=== PATIENT | female | born 1960 | race Caucasian/White ===

== ENCOUNTER 2019-01-26 17:13 | Outpatient (REF) | payer BC, SELFPAY ==
[2019-01-26 18:30] LABS: ALT 46 U/L (12-78); AST 21 U/L (15-37); Albumin 3.9 g/dL (3.4-5.0); Alkaline Phosphatase 57 U/L (46-116); Anion Gap 6.6 mmol/L (3-11); BUN 15 mg/dL (7-18); Bilirubin, Total 0.6 mg/dL (0.2-1.0); CO2 30.4 mmol/L (21.0-32.0); CREATININE 0.78 mg/dL (0.55-1.02); Chloride 102 mmol/L (98-107); Glucose 85 mg/dL (70-100); Potassium 3.8 mmol/L (3.5-5.1); Sodium 139 mmol/L (136-145); Total Protein 6.8 g/dL (6.4-8.2)
[2019-01-26 18:32] LABS: Bilirubin Negative (Negative); Blood Trace-lysed (Negative); Clarity Clear; Glucose Negative (Negative); Ketones Trace mg/dL (Negative); Leukocyte Esterase Trace (Negative); Nitrite Negative (Negative); Urobilinogen 0.2 EU/dL (Up TO 0.2)
[2019-01-26 18:42] LABS: Bacteria Negative HPF (Negative); Casts Negative LPF (Negative); Crystals Negative HPF (Negative); Epithelial Cells Negative HPF (Negative); Mucus Negative (Negative); Other Cells Negative (Negative); RBC 0-2 (0-2); WBC 0-2 HPF (0-5)
[2019-01-26 18:43] LABS: Abs Immature Grans 0.01 k/cumm (0.0-0.09); Absolute Basophil Count 0.02 k/cumm (0.0-0.2); Absolute Lymphocyte Count 2.05 k/cumm (1.2-3.4); Absolute Monocyte Count 0.61 k/cumm (0.11-0.7); Absolute Neutrophil Count 3.13 k/cumm (1.2-6.7); Basophils % 0.3; C & S Indicated? Yes; Eosinophils % 3.3; HCT 40.2 % (36.0-46.0); HGB 13.4 g/dL (12.0-15.5); Immature Grans % 0.2; Lymphocytes % 34.1; Mean Corp. HGB Concentration 33.3 g/dL (32.0-36.0); Mean Corpuscular Hemoglobin 30.5 pg (27.0-33.0); Mean Corpuscular Volume 91.4 fL (80-95); Mean Platelet Volume 9.8 fL (8.0-11.0); Monocytes % 10.1; Platelet Count 230 x1000/uL (130-400); RBC Distribution Width 13.8 % (11.7-14.6); White Blood Cell Count 6.02 k/cumm (4.4-10.8)
[2019-01-26 18:49] LABS: COMMENT (LAB VIEW ONLY) 28.67 mg/dL; Microalb ug/mg Crea 4.5 ug/mg Cr
[2019-01-26 19:34] LABS: Cholesterol 221 mg/dL (50-200); HDL Cholesterol 105 mg/dL (40-60); LDL CHOLESTEROL 104 mg/dL (<100); Triglyceride 34 mg/dL (30-150)
== END 2019-01-26 17:33 ==
LOC: NCHCN 17:13
PROVIDERS: PCP Nurse Practitioner Family; Visit Provider Nurse Practitioner Family
DX: Z00.00 Encounter for general adult medical examination without abnormal findings (principal); I10 Essential (primary) hypertension
CPT/HCPCS: 80053; 80061; 83721; 81003; 81015; 82043; 82570; 85025; 87086

== ENCOUNTER 2019-02-13 07:00 | Outpatient (CLI) | payer BC, SELFPAY ==
--- NOTE | 2019-02-13 15:22 | DI.RAD_ITS ---
SYMPTOMS/DIAGNOSIS: CHRONIC DAILY HEADACHE, R51 CERVICAL SPINE: The disc spaces are well maintained. The alignment appears normal. There are no endplate osteophytes. There are facet degenerative changes seen, greatest at C5-6. The alignment is normal. There is no prevertebral soft tissue swelling. There is no neural foraminal narrowing. IMPRESSION: Facet degenerative changes at C5-6.
--- NOTE | 2019-02-13 15:42 | DI.MAMMO_ITS ---
SYMPTOMS/DIAGNOSIS: SCREENING, Z12.31, PREVENTATIVE CARE, Z00.00 BILATERAL SCREENING MAMMOGRAM: Mammograms were interpreted according to the usual protocol including computer analysis with CAD system, tomosynthesis and C view imaging. Comparison is made with exams from 2012 through 2018. The breasts are composed of heterogeneously dense fibroglandular tissue, breast density category C. There is a stable circumscribed nodule in the lateral right breast. No suspicious masses or suspicious microcalcifications are seen. There has been no significant change. IMPRESSION: Category 2, negative mammogram with benign findings. Yearly screening mammography is recommended. [facility] ASSESSMENT OF FINDINGS: Negative with benign findings. Category 2. Patient will receive a letter notifying them of these results. Bi-RADS category C. The breasts are heterogeneously dense, which may obscure small masses.
== END 2019-02-13 07:20 ==
PROVIDERS: PCP Nurse Practitioner Family; Visit Provider Nurse Practitioner Family
DX: Z00.00 Encounter for general adult medical examination without abnormal findings (principal); Z12.31 Encounter for screening mammogram for malignant neoplasm of breast; R51 Headache; M47.812 Spondylosis without myelopathy or radiculopathy, cervical region
CPT/HCPCS: 77063; 77067; 72050

== ENCOUNTER 2019-05-17 09:58 | Emergency (ER) | payer BC, SELFPAY ==
[2019-05-17 10:00] VITALS: BP 157/82; PULSE 70; RESP 14; TEMP 36.7; O2SAT 99
--- NOTE | 2019-05-17 10:25 | ED.GENADUL_ITS ---
Discharge Plan Disposition Patient Disposition: HOME Condition: Fair Discharge Details Chief Complaint: Orthopedic Clinical Impression: Effusion of knee Primary Care Provider: Jack Durán ED Provider: Raquel Bonilla Home Meds and New Rx's Prescriptions: No Action ibuprofen 100 MG/5 ML suspension 200 mg PO PRN RF: 0 multivitamin 1 EACH capsule 1 ea PO DAILY RF: 0 acyclovir 200 MG capsule 1 tab PO DAILY PRNRF: 0 losartan 25 mg Tablet 25 mg PO DAILY RF: 0 fluticasone propionate 50 mcg/actuation [place],Suspension 1 spray INTRANASAL PRN PRNRF: 0 acyclovir-hydrocortisone 5-1 % Cream 1 applic TOPICAL PRN PRNRF: 0 Discharge Instructions Instructions: Swollen Knee Joint (ED) Additional Instructions: Encourage rest, ice, elevation. Tylenol and/or ibuprofen as needed for discomfort. Please begin working on range of motion, gentle strengthening of the knee and extending the knee. He will need follow-up with primary care, please call tomorrow to schedule follow-up at the end of the week. If you develop fever/chills, redness of the joint, increased pain or other new/worsening symptoms please seek care urgently once again. Stand Alone Forms: Work Release Referrals: Jack Durán, [employer] [Primary Care Provider] - Discharge Data Discharge Date/Time-TO BE ENTERED AT DEPARTURE: 05/17/19 11:14 Medical Decision Making Patient is a 59-year-old feel presents today with chief complaint of left knee pain. She reports that she is had pain in this knee for several years but this is greatly exacerbated a few days ago when walking. She reports that she suddenly felt a pop in the knee. Did not fall into the knee. Denies any rotational injury. States the pain is primarily retropatellar. States she is been elevating and icing without any improvement in her discomfort. Is not taking anything for her pain. Patient has not had her knee evaluated historically, no known source for chronic knee pain. On exam, patient is a moderate effusion. She is ligamentously intact. Limited range of motion, I suspect likely from the effusion itself. Plan for x-ray to assess for any chronic changes that may be present. FINDINGS: No fracture, subluxation or suprapatellar joint effusion identified. No soft tissue swelling seen. IMPRESSION: No acute findings. Discussed these findings with the patient. We discussed treatment options. I do not have any suspicion for infection at this time. Feel that she would be a good candidate to have the knee drained and injection performed. We discussed the risks and benefits of this. At this time, she prefers to hold off and follow a more conservative approach with bracing and physical therapy. I encouraged rest, ice, elevation. Tylenol and/or ibuprofen as needed for discomfort. Advise close follow-up with primary care. All of her questions and concerns were addressed and she is in agreement with this plan. HPI General Mode of arrival: ambulatory . Date/Time Provider Initiated Documentation: 05/17/19 10:12 . Limitations to Documentation: no limitations . Information obtained by: patient, family and RN notes reviewed . History of Present Illness 59 year old F presents to the emergency department with the chief complaint of left knee pain, described as moderate, with intensity rated at 5. Quality is described as aching, and is localized to the left and lower extremity. Patient reports no radiation. Patient started experiencing this day(s) (2) and it has been constant. Immobilization improves symptom(s), Movement worsens symptoms . Patient notes no other symptoms.; denies fever/chills, rash and weakness. Patient did receive the following treatments prior to arrival, none Related Data Home Medications Medication Instructions Recorded Confirmed ibuprofen 200 mg PO PRN ml 08/15/15 05/17/19 multivitamin 1 ea PO DAILY 08/15/15 05/17/19 acyclovir 1 tab PO DAILY PRN 10/24/15 05/17/19 acyclovir-hydrocortisone 1 applic TOPICAL PRN PRN 05/17/19 05/17/19 fluticasone propionate 1 spray INTRANASAL PRN PRN 05/17/19 05/17/19 losartan 25 mg PO DAILY 05/17/19 05/17/19 Allergies Allergy/AdvReac Type Severity Reaction Status Date / Time No Known Allergies Allergy Unverified 05/17/19 10:04 General Stated Complaint: Orthopedic LISA: 4 Review of Systems Constitutional Reports as per HPI, Denies chills, Denies fever(s), Denies headache(s) and Denies weakness ENT Denies headache(s) Cardiovascular Reports as per HPI Respiratory Reports as per HPI and Denies cough Musculoskeletal Reports as per HPI and Denies tingling Integumentary/Breasts Reports as per HPI, Denies rash and Denies wounds Neurologic Reports as per HPI, Denies headache(s), Denies tingling, Denies paresthesias and Denies weakness PFSH Medical History Colon polyps DJD (degenerative joint disease) GERD (gastroesophageal reflux disease) Hypertension no longer on medications-diet and weight controlled Surgical History Colonoscopy - IV Sedation 2011 Family History (Updated 08/15/15 @ 14:25 by Migdalia Ackerman MD) Other Breast cancer Lung cancer Prostate cancer Social History Smoking/Tobacco Use Status: Former Tobacco Use Drug use: Never Do you feel safe at home: Yes Do you feel safe in your relationship?: Yes Exam Const General: cooperative, healthy appearing, comfortable, no acute distress, well developed and well groomed Nutritional Appearance: average body habitus and well nourished Orientation: alert and awake Resp Effort & Inspection: normal respiratory effort, able to speak in complete sentences and no respiratory distress Cardio Rate: regular rate Rhythm: regular rhythm Skin General skin exam: no rashes or lesions noted Lesions: no lesions Rashes: no rashes Trauma: no lacerations or abrasions Neuro General: alert and awake Cognition: normal cognition Speech: speech normal Gait: normal gait Motor: muscle tone normal throughout Sensory Exam: no sensory deficits noted Extrem Left lower extremity: normal capillary refill, hip/thigh Details: normal to inspection and normal ROM; no tenderness and no swelling, knee Details: tenderness (with palpation of patella), swelling (moderate effusion), knee ligament exam normal Details: anterior drawer test normal, posterior drawer test normal, valgus stress test normal and varus stress test normal; pain with axial loading, Adam's Test (unable to preform secondayr to swelling) and Apley's Test Details: negative; ROM abnormal (unable to flex past 90), no abrasions, no lacerations, no ecchymosis and no crepitus, lower leg Details: normal to inspection and no edema; no erythema, no tenderness, no localized swelling and no palpable cords and foot Details: normal capillary refill and vascular exam Details: dorsalis pedis pulse present; abnormal ROM, no cyanosis and no edema Psych Appearance: grossly normal and well kempt Mental Status: mental status grossly normal Speech and Movement: speech and movement normal Course Vital Signs Temperature 36.7 C 05/17/19 10:00 Pulse 70 05/17/19 10:00 Respiratory Rate 14 05/17/19 10:00 Blood Pressure 157/82 H 05/17/19 10:00 Pulse Oximetry 99 05/17/19 10:00 Temperature 36.7 C 05/17/19 10:00 Temperature Source Skin 05/17/19 10:00 Pulse 70 05/17/19 10:00 Respiratory Rate 14 05/17/19 10:00 Respiratory Effort Non-Labored 05/17/19 10:09 Blood Pressure 157/82 H 05/17/19 10:00 Blood Pressure Position Sitting 05/17/19 10:00 Pulse Oximetry 99 05/17/19 10:00 Oxygen Delivery Method Room Air 05/17/19 10:00 Oxygen Flow Rate 0 05/17/19 10:00 Pain Level 4 05/17/19 10:11
--- NOTE | 2019-05-17 10:41 | DI.RAD_ITS ---
SYMPTOM/DIAGNOSIS: PATELLA FEMORAL PAIN, MODERATE EFFUSION ON EXAM LEFT KNEE: Four views were performed. There is a joint effusion. No fracture is identified. There is mild narrowing of the medial femoral tibial joint space but no significant patellofemoral joint space narrowing. There is minimal periarticular spurring. IMPRESSION: Joint effusion and mild degenerative changes.
--- NOTE | 2019-05-17 10:55 | DI.VRAD_ITS ---
EXAM: XR Left Knee EXAM DATE/TIME: 05/17/2019 10:26 AM CLINICAL HISTORY: 59 years old, female; Knee; Left; Patient HX: [place] pop while walking, patella femoral pain, moderate effusion on exam TECHNIQUE: Imaging protocol: XR Left knee. Views: 4 or more views. COMPARISON: No relevant prior studies available. FINDINGS: No fracture, subluxation or suprapatellar joint effusion identified. No soft tissue swelling seen. IMPRESSION: No acute findings. Dictated and Authenticated by: Ramo John MD. Ordering:TOBIAS García MD
== END 2019-05-17 11:14 | disposition home or self-care (01) ==
LOC: ER 11:17
PROVIDERS: Emergency Provider Physician Assistant; PCP Nurse Practitioner Family
DX: M25.462 Effusion, left knee (principal)
CPT/HCPCS: 29505; 99283; 73564; 99282; L1830

== ENCOUNTER 2020-08-04 14:28 | Outpatient (REF) | payer BC, SELFPAY ==
[2020-08-04 18:14] LABS: HCT 40.2 % (36.0-46.0); HGB 13.4 g/dL (11.2-15.7); MCH 30.6 pg (27.0-33.0); MCHC 33.3 % (32.0-36.0); MCV 91.8 fL (80-95); MPV 9.9 fL (8.0-11.0); Platelet Count 247 10^3/uL (130-400); RBC 4.38 10^6/uL (3.93-5.22); RDW 12.9 % (11.7-14.6); RDW-SD 43.6 fL; WBC 7.07 10^3/uL (4.4-10.8)
[2020-08-04 18:43] LABS: COMMENT (LAB VIEW ONLY) 35.21 mg/dL; Microalb ug/mg Crea 5.1 ug/mg Cr
[2020-08-04 18:47] LABS: Anion Gap 9.4 mmol/L (3-11); BUN 18 mg/dL (7-18); CO2 27.6 mmol/L (21.0-32.0); CREATININE 0.86 mg/dL (0.55-1.02); Calculated LDL 104 mg/dL (<100); Chloride 102 mmol/L (98-107); Cholesterol 217 mg/dL (<200); Glucose 77 mg/dL (74-106); HDL Cholesterol 107 mg/dL (40-60); Potassium 3.8 mmol/L (3.5-5.1); Sodium 139 mmol/L (136-145); TSH (W/Ref FT4) 1.04 uIU/mL (0.36-3.74); Triglyceride 30 mg/dL (<150)
== END 2020-08-04 14:48 ==
LOC: NCHCN 14:28
PROVIDERS: PCP Nurse Practitioner Family; Visit Provider Nurse Practitioner Family
DX: I10 Essential (primary) hypertension (principal)
CPT/HCPCS: 80048; 80061; 85027; 82043; 82570; 84443

== ENCOUNTER 2020-08-30 01:33 | Outpatient (CLI) | payer BC, SELFPAY ==
--- NOTE | 2020-08-30 | DI.US_ITS ---
EXAM: US PELVIS TRANSVAGINAL CLINICAL HISTORY: DEEP DYSPAREUNIA,N94.12 TECHNIQUE: Ultrasound performed using standard protocol. COMPARISON: No exams were available for comparison FINDINGS: Pelvic ultrasound was performed transabdominally and transvaginally. Uterus measures about 6.9 x 3.0 x 4.6 cm. There are a couple of fundal fibroids, each measuring abou t 1 cm in diameter. The endometrial stripe is homogeneous and about 2 millimeters in thickness. No free fluid identified in the cul-de-sac. Right ovary measures 34 x 26 x 29 millimeters in contains a 2 cm in diameter simple cyst. Left ovary measures 30 x 15 x 16 millimeters and is unremarkable. Limited scanning of the kidneys shows no specific abnormality. IMPRESSION: Fundal uterine fibroids noted. Right ovarian simple cyst noted. DATA REPOSITORY:
== END 2020-08-30 01:53 ==
PROVIDERS: PCP Nurse Practitioner Family; Visit Provider Nurse Practitioner Family
DX: D25.9 Leiomyoma of uterus, unspecified (principal); N83.291 Other ovarian cyst, right side; N94.12 Deep dyspareunia
CPT/HCPCS: 76830; 76856

== ENCOUNTER 2021-05-24 01:15 | Outpatient (CLI) | payer OTHER, SELFPAY ==
--- NOTE | 2021-05-24 | DI.MRI_ITS ---
Exam(s) MR UPPER JOINT RT WO EXAM: MR UPPER JOINT RT WO CLINICAL HISTORY: RT SHOULDER PAIN, M25.511,NOT IMPROVED WITH PT. TECHNIQUE: Multiplanar multisequence MRI was performed. COMPARISON: No exams were available for comparison FINDINGS: BONES: There is no fracture or contusion pattern. JOINTS: Moderate degenerative changes are seen at the acromioclavicular joint. Mild degenerative liliana nges are seen in the greater tuberosity. The glenohumeral joint is normal. TENDONS: Supraspinatus: There is tendinosis of the supraspinatus tendon. There are few foci of hyperintense s ignal seen in the supraspinatus tendon anteriorly which may represent intrasubstance partial tear. Infraspinatus: There is tendinosis of the infraspinatus tendon. Subscapularis: Unremarkable. Teres Minor: Unremarkable. Biceps and [place]: There is tendinosis of the biceps tendon. MUSCLES: Unremarkable. GLENOID LABRUM: Unremarkable on this noncontrast examination. SOFT TISSUES: Unremarkable. LIGAMENTS: Unremarkable. OTHER: There is a tiny amount of fluid in the subacromial subdeltoid bursa. IMPRESSION: 1. Findings which may represent a small intrasubstance tear of the supraspinatus tendon. 2. Tendinosis of the supraspinatus, infraspinatus and biceps tendons. 3. Degenerative changes seen in the acromioclavicular joint and greater tuberosity. 4. Small amount of fluid in the subacromial subdeltoid bursa. DATA REPOSITORY:
== END 2021-05-24 01:35 ==
PROVIDERS: PCP Physician Assistant; Visit Provider Nurse Practitioner Family
DX: M25.511 Pain in right shoulder (principal); M19.011 Primary osteoarthritis, right shoulder
CPT/HCPCS: 73221

== ENCOUNTER 2021-07-04 00:57 | Outpatient (CLI) | payer BC, SELFPAY ==
--- NOTE | 2021-07-04 | DI.MAMMO_ITS ---
Exam(s) MAMMO SCREENING EXAM: MAMMO SCREENING CLINICAL HISTORY: SCREENING, Z12.39. TECHNIQUE: Bilateral full field digital CC and MLO mammographic images were obtained with 3D tomosyn thesis and utilizing computer aided detection (CAD). COMPARISON: Prior mammograms dating back to 2012, the most recent being January 2019. FINDINGS: The fibroglandular tissue pattern is again noted be moderately dense, this decreasing the sensitivity of the mammogram for finding in underlying lesions. There are no new significant radiographic findings in the left breast. In the right breast there is an asymmetric density located laterally unchanged from prior studies. M ore anteriorly there is a well-defined noncalcified 5 by 4 millimeter nodule located 3 cm in from the nipple, seen on the MLO view and unchanged from 2016 and therefore benign. There are no malignant-appearing microcalcification groups in this region or elsewhere in either [address]. There is no significant architectural distortion nor skin thickening-retraction. IMPRESSION: Moderately dense fibroglandular tissue. Stable benign-appearing findings. No radiographic evidence of malignancy. BI-RADS Category 2 - Benign Findings Breast Density - Category C - Heterogeneously dense Breast density Category C or D implies that the patient has dense breast tissue. Dense breast tissue can make it harder to find cancer on a mammogram. Dense breast tissue is also associated with an incr eased risk of breast cancer. This information about the result of the mammogram report was provided to the patient to raise their awareness. Use this report when you speak with the patient about their risks for breast cancer, which includes their family history. At that time, you may recommend additional screening tests (Ultrasoun d or MRI) as these tests may add significant information. A negative radiographic report should not delay biopsy if a dominant or clinically suspicious mass is present. Up to ten percent of cancers are not identified on mammography. A negative report may reinforce clinical impression. Adenosis and dense breasts may obscure an underlying neoplasm. False positive reports average 6 to 10%. Patient will receive a letter notifying them of these results.
== END 2021-07-04 01:17 ==
PROVIDERS: PCP Physician Assistant; Visit Provider Physician Assistant
DX: Z12.31 Encounter for screening mammogram for malignant neoplasm of breast (principal); R92.8 Other abnormal and inconclusive findings on diagnostic imaging of breast
CPT/HCPCS: 77063; 77067

== ENCOUNTER 2021-09-02 11:14 | Observation (INO) | payer BC, SELFPAY ==
[2021-09-02] VITALS (14 sets, daily range): BP systolic 136–166; BP diastolic 80–93; PULSE 63–87; RESP 14–25; TEMP 36.5–37.6; O2SAT 95–98
--- NOTE | 2021-09-02 11:30 | RT.EKG_ITS ---
APPROVED REPORT Exam: Resting ECG Reason for Exam: L face numb Patient Location: E HR:58 bpm ECG Measurements Heart Rate 58 AXIS MA 161 P 69 QRSd 80 QRS 0 QT 420 T 24 QTc 414 Conclusion Sinus bradycardia...rate< 60
--- NOTE | 2021-09-02 11:30 | DI.CT_ITS ---
Exam(s) CT HEAD - STROKE PROTOCOL EXAM: CT HEAD - STROKE PROTOCOL CLINICAL HISTORY: L face and arm numbness. TECHNIQUE: Imaging Protocol: Axial computed tomography images with coronal and sagittal reformatted images were created and reviewed COMPARISON: No exams were available for comparison FINDINGS: Ventricles and Extra axial spaces: Normal in size and morphology for the patient's age. Hemorrhage: None. Cerebral parenchyma: Normal. No acute territorial infarct is identified. Midline shift: None. Brainstem/Cerebellum: Normal. Calvarium: Normal. Visualized Paranasal sinuses/Mastoids: Clear. Soft Tissues: Unremarkable. IMPRESSION: No acute intracranial process. RADIATION DOSE DELIVERED: 677.81mGy.cm Total DLP DATA REPOSITORY: All CT scans at this facility are submitted to the National Radiology Data Registry (NRDR) Dose Index Registry (DIR) with the [employer] (A[employer]). RADIATION OPTIMIZATION: All CT scans at this facility use at least one of these dose optimization te chniques: automated exposure control; mA and/or kV adjustment per patient size (includes targeted exa ms where dose is matched to clinical indication); or iterative reconstruction.
--- NOTE | 2021-09-02 11:30 | DI.RAD_ITS ---
Exam(s) XR CHEST 1V IN DI DEPT EXAM: XR CHEST 1V IN DI DEPT CLINICAL HISTORY: L face numbness TECHNIQUE: 2D digital imaging was performed of the chest. One image was obtained. An AP view was ob tained. COMPARISON: No exams were available for comparison FINDINGS: MEDIASTINUM: Normal. HEART: Normal. PULMONARY VASCULATURE: Normal. LUNGS: Clear. PLEURAL SPACE: No pleural effusion or pneumothorax. BONE:Within normal limits for the patient's age. OTHER FINDINGS:Normal. IMPRESSION: No acute pulmonary findings. DATA REPOSITORY: RADIATION DOSE DELIVERED:
--- NOTE | 2021-09-02 11:45 | W.ED.GENAD ---
Discharge Plan Disposition Patient Disposition: [facility] INPATIENT Condition: Stable Discharge Details Chief Complaint: CVA/TIA Clinical Impression: Acute CVA (cerebrovascular accident) Primary Care Provider: Constantine Acevedo ED Provider: Mike Mahoney Home Meds and New Rx's Prescriptions: No Action ibuprofen 200 mg tablet 400 mg PO Q6H PRNRF: 0 multivitamin 1 EACH capsule 1 ea PO DAILY RF: 0 acyclovir 200 MG capsule 1 tab PO DAILY PRNRF: 0 losartan 25 mg Tablet 25 mg PO DAILY RF: 0 fluticasone propionate 50 mcg/actuation [place],Suspension 1 spray INTRANASAL PRN PRNRF: 0 acyclovir-hydrocortisone 5-1 % Cream 1 applic TOPICAL PRN PRNRF: 0 Medical Decision Making Pleasant and delightful otherwise healthy 61-year-old female presents with the abrupt onset of left face and left forearm numbness/decreased sensation at home approximate 10:30 AM this morning. She does have a history of hypertension for which she takes losartan. She has recently been well and is fully immunized against COVID-19. Patient arrives well-appearing 163/91, otherwise unremarkable vital signs. She demonstrates subjective decreased sensation in the left face and primarily left forearm. [id number] is unremarkable, Romberg is negative, lnfc-ff-[id number] unremarkable and there are no other noted focal neurologic deficits. Patient placed on a cardiac specialist, screening labs, EKG obtained, patient referred for CT scan of the head and chest x-ray. Laboratories are reassuring, with no potassium of 3.3. CT scan of the head without intracranial findings. Chest x-ray unremarkable. Patient does have persistent subjective numbness of the left face and forearm. I do feel she should be admitted for further stroke work-up and case was discussed with Dr. Chaudhry. HPI General Mode of arrival: ambulatory. Date/Time Provider Initiated Documentation: 09/02/21 11:25. Limitations to Documentation: no limitations. Information obtained by: patient and family. History of Present Illness 61 year old F presents to the emergency department with the chief complaint of L face and arm tingling approx 1030am, described as mild, Quality is described as constant, and is localized to the face, left and upper extremity. Patient reports no radiation. Patient started experiencing this minute(s) and it has been constant. No relieving factors improve symptom(s), No exacerbating factors reported . Patient notes denies headaches, shortness of breath, syncope and weakness. Patient did receive the following treatments prior to arrival, none Related Data Home Medications Medication Instructions Recorded Confirmed multivitamin 1 ea PO DAILY 08/15/15 09/02/21 acyclovir 1 tab PO DAILY PRN 10/24/15 09/02/21 acyclovir-hydrocortisone 1 applic TOPICAL PRN PRN 05/17/19 09/02/21 fluticasone propionate 1 spray INTRANASAL PRN PRN 05/17/19 09/02/21 losartan 25 mg PO DAILY 05/17/19 09/02/21 ibuprofen 200 mg tablet 400 mg PO Q6H PRN tab 07/03/21 09/02/21 Allergies Allergy/AdvReac Type Severity Reaction Status Date / Time cats Allergy Uncoded 09/02/21 11:26 General Stated Complaint: CVA/TIA LISA: 2 Review of Systems Narrative: immunized against Covid, no recent illness, no weakness, clumsiness, no CP or palp. 8 systems reveiewed PFSH All Active Problems (Updated 09/02/21 @ 13:15 by Mike Mahoney MD) Acute CVA (cerebrovascular accident) (Acute) Right rotator cuff tendonitis (Acute) Uterine fibroid (Acute) Uterine tenderness (Acute) Deep dyspareunia (Acute) Internal derangement of left knee (Acute) Medical History Colon polyps Deep dyspareunia DJD (degenerative joint disease) GERD (gastroesophageal reflux disease) Hypertension no longer on medications-diet and weight controlled Uterine fibroid Uterine tenderness Surgical History Colonoscopy - IV Sedation 2011 Family History Other Breast cancer Lung cancer Prostate cancer Social History Smoking/Tobacco Use Status: Former Tobacco Use Smoking risk assessment performed?: Yes Alcohol Intake: current Alcohol Intake frequency: a few times a week Drug use: Never Substance use type: does not use Do you feel safe at home: Yes Do you feel safe in your relationship?: Yes Exam Narrative Exam Narrative: GEN: awake, alert, oriented 3. Pleasant, well groomed, interactive. HEAD: Normocephalic, atraumatic ENT: Mucous membranes moist, oropharynx unremarkable, External ear exam unremarkable EYES: PERRL, EOMI NECK: Full ROM, no ZANDER, no menigismus CHEST/RESP: Nontender, clear to auscultation bilateral, no wheeze/rhonchi/rales CARDIOVASCULAR: RRR, no murmur, rub michelle. 2+ Rad pulse bilateral ABDOMEN: Soft, nontender, no mass. +Bowel sounds EXT: Full ROM, no edema, no rash Neuro: Decreased sensation left face, V1, V2, V3 distribution, decreased sensation left forearm radial aspect. Normal motor throughout. Cranial nerves II through XII otherwise intact. Grossly normal neurologic exam, conversant, interactive. Psych: Speech fluent, thoughts congruent, affect normal Course Vital Signs Vital signs: Vital Signs Temperature 36.6 C 09/02/21 11:22 Pulse 81 09/02/21 11:22 Respiratory Rate 16 09/02/21 11:22 Blood Pressure 163/91 H 09/02/21 11:22 Pulse Oximetry 98 09/02/21 11:22 Temperature 36.6 C 09/02/21 11:22 Temperature Source Skin 09/02/21 11:22 Pulse 81 09/02/21 11:22 Respiratory Rate 16 09/02/21 11:22 Respiratory Effort Non-Labored 09/02/21 11:41 Respiratory Depth Normal 09/02/21 11:41 Respiratory Pattern Normal 09/02/21 11:41 Blood Pressure 163/91 H 09/02/21 11:22 Blood Pressure Position Supine 09/02/21 11:22 Pulse Oximetry 98 09/02/21 11:22 Oxygen Delivery Method Room Air 09/02/21 11:22 Oxygen Flow Rate 0 09/02/21 11:22 Pain Level 0 09/02/21 11:22
[2021-09-02 11:56] LABS: Abs Immature Grans 0.02 10^3/uL (0.0-0.06); Absolute Basophil Count 0.04 10^3/uL (0.0-0.2); Absolute Eosinophil Count 0.21 10^3/uL (0.0-0.7); Absolute Lymphocyte Count 2.45 10^3/uL (1.2-3.4); Absolute Monocyte Count 0.67 10^3/uL (0.1-0.8); Absolute Neutrophil Count 3.58 10^3/uL (1.2-6.7); Basophils % 0.6; HCT 43.5 % (36.0-46.0); HGB 14.3 g/dL (11.2-15.7); Immature Grans % 0.3; Lymphocytes % 35.2; MCH 30.3 pg (27.0-33.0); MCHC 32.9 % (32.0-36.0); MCV 92.2 fL (80-95); MPV 9.2 fL (8.0-11.0); Monocytes % 9.6; Neutrophils % 51.3; Nucleated RBC 0 %; Platelet Count 288 10^3/uL (130-400); RBC 4.72 10^6/uL (3.93-5.22); RDW 13.2 % (11.7-14.6); RDW-SD 44.6 fL; WBC 6.97 10^3/uL (4.4-10.8)
--- NOTE | 2021-09-02 12:03 | DI.VRAD_ITS ---
Addendum created by Mike Devi MD on 09/02/2021 12:04:39 PM EST: THIS REPORT CONTAINS FINDINGS THAT MAY BE CRITICAL TO PATIENT CARE. The findings were verbally communicated by me to MIKE INGRAM via telephone conference at 12:04 PM EST on 09/02/2021. The findings were acknowledged and understood. Initial report created on 09/02/2021 12:03:08 PM EST: PROCEDURE INFORMATION: Exam: CT Head Without Contrast Exam date and time: 09/02/2021 11:45 AM Age: 61 years old Clinical indication: Other: Left face and arm numbness TECHNIQUE: Imaging protocol: Computed tomography of the head without contrast. Other technique: STROKE PROTOCOL was implemented. COMPARISON: CR XR cervical spine comp 4-5V 13/02/2019 15:10 FINDINGS: Brain: Normal. No intraxial or extraaxial hemorrhage. No infarct visible at this time. Unremarkable white matter. No mass effect. No significant involutional change. Cerebral ventricles: Normal. No ventriculomegaly or midline shift. Pituitary gland and sella: Normal. No enlargement. Paranasal sinuses: Visualized sinuses are unremarkable. No fluid levels or mucosal thickening. Mastoid air cells: Visualized mastoid air cells are well aerated. Orbital cavity: Unremarkable. Vasculature: No significant atherosclerotic calcification. Bones/joints: Unremarkable. No acute fracture. Soft tissues: Unremarkable. IMPRESSION: Normal head CT. ASSESSMENT: ASPECTS ([place] Stroke Program Early CT Score) is 10. Dictated and Authenticated by: Mike Devi MD. Ordering:ELVIRA Mckeon MD
--- NOTE | 2021-09-02 12:04 | DI.VRAD_ITS ---
PROCEDURE INFORMATION: Exam: XR Chest Exam date and time: 09/02/2021 11:45 AM Age: 61 years old Clinical indication: Other: Left face numbness TECHNIQUE: Imaging protocol: XR of the chest. Views: 1 view. COMPARISON: MR UPPER JOINT RT WO 10/01/2020 13:54 FINDINGS: Lungs: Lungs are clear with no infiltrate or nodule. Pleural spaces: Unremarkable. No pleural effusion. No pneumothorax. Heart/Mediastinum: Cardiomediastinal silhouette is normal. Bones/joints: Unremarkable. IMPRESSION: No active cardiopulmonary disease. Dictated and Authenticated by: Mike Devi MD. Ordering:ELVIRA Mckeon MD
[2021-09-02 12:14] LABS: ALT 43 U/L (14-59); AST 20 U/L (15-37); Alkaline Phosphatase 64 U/L (46-116); Anion Gap 6.2 mmol/L (3-11); BUN 16 mg/dL (7-18); Bilirubin, Total 0.4 mg/dL (0.2-1.0); CO2 30.8 mmol/L (21.0-32.0); CREATININE 0.9 mg/dL (0.55-1.02); Calcium 9.4 mg/dL (8.5-10.1); Chloride 102 mmol/L (98-107); Glucose 102 mg/dL (74-106); Magnesium 2.2 mg/dL (1.8-2.4); Potassium 3.3 mmol/L (3.5-5.1); Sodium 139 mmol/L (136-145); Total Protein 7.6 g/dL (6.4-8.2); Troponin I < 0.05 ng/mL (<0.06)
[2021-09-02] MEDS: Aspirin 325 MG TAB PO (12:17)
[2021-09-02] MEDS: Lactated Ringers 1,000 ML 125 ML IV ×3 (13:00→22:17)
[2021-09-02 13:26] LABS: Source Nasal/Nares
--- NOTE | 2021-09-02 14:06 | W.PM.HP.N ---
Date of service: 09/02/21 Time of Service: 14:20 Assessment and Plan Assessment and plan (1) TIA (transient ischemic attack): Start date: 09/02/21 Start time: 15:17 Status: Acute Assessment and plan: Slight facial droop on left side. Left side with weakness and left side numbness has disappeared. All motor function intact Lipid panel, A1c for am Atorvastatin, asa added IVF, hold HTN medication and allow for permissive HTN at this time Telemetry, MRI, U/S, Echo, Neuro consult for Saturday (2) GERD (gastroesophageal reflux disease): Start date: 09/02/21 Start time: 15:34 Status: Acute Assessment and plan: omeprazole Qualifiers: Esophagitis presence: esophagitis presence not specified Qualified Code(s): K21.9 - Gastro-esophageal reflux disease without esophagitis (3) Hypertension: Start date: 09/02/21 Start time: 15:34 Status: Acute Assessment and plan: Hold at this time for permissive discussed with Dr. Chaudhry Qualifiers: Hypertension type: unspecified Qualified Code(s): I10 - Essential (primary) hypertension History of Present Illness History of Present Illness Chief Complaint: Facial numbness, left arm numbness Narrative: 61 y.o female with PMH of GERD, HTN presented to [facility] for abrupt onset of left face and left forearm numbness/decreased sensation at home approximate 10:30 AM this morning. Labs in the ED reveal only potassium of 3.3. CT of head negative. Will admit for obs on telemetry. Replete mag with po. Labs for am to include lipid panel, A1c, started on ASA, atorvastatin, Echo, u/s cartoids, MRI and Neuro consult ordered for Saturday. Patient states all sx have resolved except small spot on left side of her face. Review of Systems All systems reviewed & are unremarkable except as noted in HPI and below PFSH All Active Problems (Updated 09/02/21 @ 15:17 by Jerri Noyola NP) Hypertension (Acute) GERD (gastroesophageal reflux disease) (Acute) TIA (transient ischemic attack) (Acute) Acute CVA (cerebrovascular accident) (Acute) Right rotator cuff tendonitis (Acute) Uterine fibroid (Acute) Uterine tenderness (Acute) Deep dyspareunia (Acute) Internal derangement of left knee (Acute) Medical History Colon polyps DJD (degenerative joint disease) GERD (gastroesophageal reflux disease) Hypertension no longer on medications-diet and weight controlled Surgical History Colonoscopy - IV Sedation 2011 Family History Other Breast cancer Lung cancer Prostate cancer Social History Smoking/Tobacco Use Status: Former Tobacco Use Smoking risk assessment performed?: Yes Alcohol Intake: current Alcohol Intake frequency: a few times a week Drug use: Never Substance use type: does not use Do you feel safe at home: Yes Do you feel safe in your relationship?: Yes Meds Allergies and Home Medications Allergies Allergy/AdvReac Type Severity Reaction Status Date / Time cats Allergy Uncoded 09/02/21 11:26 Home Medications Medication Instructions Recorded Confirmed Type multivitamin 1 ea PO DAILY 08/15/15 09/02/21 History acyclovir 1 tab PO DAILY PRN 10/24/15 09/02/21 History acyclovir-hydrocortisone 1 applic TOPICAL PRN PRN 05/17/19 09/02/21 History fluticasone propionate 1 spray INTRANASAL PRN PRN 05/17/19 09/02/21 History losartan 25 mg PO DAILY 05/17/19 09/02/21 History ibuprofen 200 mg tablet 400 mg PO Q6H PRN tab 07/03/21 09/02/21 History Exam Const General: cooperative, comfortable and no acute distress Orientation: alert, awake and oriented x3 Eyes Eyelids: eyelids normal Pupils: PERRL EOM: EOM intact bilaterally Neck Neck: normal visual inspection and no JVD Lymphatic: no lymphadenopathy noted Resp Effort & Inspection: normal respiratory effort Auscultation: clear to auscultation bilaterally Cardio Jugular venous pressure: no JVD Rhythm: regular rhythm Heart Sounds: S1 normal GI Auscultation: normal bowel sounds General: No CVA tenderness and deferred Skin General skin exam: no rashes or lesions noted Neuro General: patient alert, patient awake, patient oriented x3 and no focal motor deficits Cranial Nerves: CN's II-XI intact bilaterally Cognition: normal cognition Speech: speech normal Gait: normal gait Motor: muscle tone normal throughout, strength 5/5 throughout, no pronator drift and no movement abnormalities noted Sensory Exam: no sensory deficits noted Coordination: [id number]-my-[id number] test normal, [id number]-ly-dzkk test normal and Romberg test normal Extrem General: normal to inspection, full ROM and no clubbing, cyanosis or edema Results Labs Result diagrams: 09/02/21 11:25 09/02/21 11:25 Labs: Laboratory Results - last 24 hr 09/02/21 09/02/21 09/02/21 11:25 11:25 13:22 WBC 6.97 RBC 4.72 Hgb 14.3 Hct 43.5 MCV 92.2 MCH 30.3 MCHC 32.9 RDW 13.2 Plt Count 288 MPV 9.2 Immature Gran % 0.3 Neutrophils % 51.3 Lymphocytes % 35.2 Monocytes % 9.6 Eosinophils % 3.0 Basophils % 0.6 Nucleated RBC % 0 Absolute Neutrophils 3.58 Absolute Lymphocytes 2.45 Absolute Monocytes 0.67 Absolute Eosinophils 0.21 Absolute Basophils 0.04 Sodium 139 Potassium 3.3 L Chloride 102 Carbon Dioxide 30.8 Anion Gap 6.2 BUN 16 Creatinine 0.9 Estimated GFR/1.73 m2 >= 60.00 Glucose 102 Calcium 9.4 Magnesium 2.2 Total Bilirubin 0.4 AST 20 ALT 43 Alkaline Phosphatase 64 Troponin I < 0.05 Total Protein 7.6 Albumin 4.0 COVID-19 Source Nasal/Nares 09/02/21 14:38 WBC RBC Hgb Hct MCV MCH MCHC RDW Plt Count MPV Immature Gran % Neutrophils % Lymphocytes % Monocytes % Eosinophils % Basophils % Nucleated RBC % Absolute Neutrophils Absolute Lymphocytes Absolute Monocytes Absolute Eosinophils Absolute Basophils Sodium Potassium Chloride Carbon Dioxide Anion Gap BUN Creatinine Estimated GFR/1.73 m2 Glucose Calcium Magnesium Total Bilirubin AST ALT Alkaline Phosphatase Troponin I Cancelled Total Protein Albumin COVID-19 Source Last Vital Signs Temp 36.5 C 09/02/21 12: Pulse 69 09/02/21 13:30 Resp 14 09/02/21 13:30 BP 166/93 H 09/02/21 13:30 Pulse Ox 95 09/02/21 13:30
[2021-09-02] MEDS: Potassium Chloride 20 MEQ TABCR 40 MEQ PO (15:12)
[2021-09-02 15:58] LABS: COVID-19 PCR Negative (Negative)
[2021-09-02] MEDS: Enoxaparin 40 MG/0.4 ML SYR SC (17:31)
[2021-09-02] MEDS: Atorvastatin 40 MG TAB 80 MG PO (19:35)
[2021-09-03] VITALS (12 sets, daily range): BP systolic 119–165; BP diastolic 77–97; PULSE 57–78; RESP 16–20; TEMP 36.8–37; O2SAT 94–97
[2021-09-03] MEDS: Acetaminophen 325 MG TAB PO ×2 (01:08→08:30)
[2021-09-03] MEDS: Lactated Ringers 1,000 ML 125 ML IV (05:11)
[2021-09-03 05:47] LABS: Abs Immature Grans 0.01 10^3/uL (0.0-0.06); Absolute Basophil Count 0.03 10^3/uL (0.0-0.2); Absolute Eosinophil Count 0.22 10^3/uL (0.0-0.7); Absolute Lymphocyte Count 2.03 10^3/uL (1.2-3.4); Absolute Monocyte Count 0.68 10^3/uL (0.1-0.8); Absolute Neutrophil Count 4.59 10^3/uL (1.2-6.7); Basophils % 0.4; Eosinophils % 2.9; HCT 38.9 % (36.0-46.0); HGB 12.8 g/dL (11.2-15.7); Immature Grans % 0.1; Lymphocytes % 26.9; MCH 30.1 pg (27.0-33.0); MCHC 32.9 % (32.0-36.0); MCV 91.5 fL (80-95); MPV 9.1 fL (8.0-11.0); Neutrophils % 60.7; Nucleated RBC 0 %; Platelet Count 253 10^3/uL (130-400); RBC 4.25 10^6/uL (3.93-5.22); RDW 13.5 % (11.7-14.6); RDW-SD 45.8 fL; WBC 7.56 10^3/uL (4.4-10.8)
[2021-09-03 06:03] LABS: Anion Gap 5.6 mmol/L (3-11); BUN 14 mg/dL (7-18); CO2 30.4 mmol/L (21.0-32.0); CREATININE 0.9 mg/dL (0.55-1.02); Calcium 8.6 mg/dL (8.5-10.1); Calculated LDL 114 mg/dL (<100); Chloride 105 mmol/L (98-107); Cholesterol 214 mg/dL (<200); Glucose 95 mg/dL (74-106); HDL Cholesterol 82 mg/dL (40-60); Potassium 4.1 mmol/L (3.5-5.1); Sodium 141 mmol/L (136-145); Triglyceride 90 mg/dL (<150)
[2021-09-03 06:37] LABS: Hemoglobin A1C 5.9 % (<5.7)
--- NOTE | 2021-09-03 07:49 | PT.INIE ---
Date of service: 09/03/21 Time of Service: 07:25 PT Notes Visit Reasons: CVA?, facial numbness,tingling to left arm Inpatient Physical Therapy Evaluation Date: 09/03/2021 Referring Doctor: Jerri Noyola NP PT Orders: PT CONSULT: Nonurgent PT consult Precautions: none Patient Profile/Admitting Diagnosis: Patient is a 61-year-old female who presented to the emergency department at [facility] on 09/02/2021 secondary to complaints of left facial numbness, left forearm numbness radiating into the thumb and index finger and mild weakness in left upper extremity. Diagnosed with TIA. Patient does have a medical history including hypertension. She has been vaccinated for Covid. PMHX: All Active Problems (Updated 09/02/21 @ 15:17 by Jerri Noyola NP) Hypertension (Acute) GERD (gastroesophageal reflux disease) (Acute) TIA (transient ischemic attack) (Acute) Acute CVA (cerebrovascular accident) (Acute) Right rotator cuff tendonitis (Acute) Uterine fibroid (Acute) Uterine tenderness (Acute) Deep dyspareunia (Acute) Internal derangement of left knee (Acute) Medical History Colon polyps DJD (degenerative joint disease) GERD (gastroesophageal reflux disease) Hypertension no longer on medications-diet and weight controlled Surgical History Colonoscopy - IV Sedation 2011 Social History/Home Situation: Patient lives with her in a single level home with 3 stairs and railing upon entry. Patient employed at [employer]. Current Functional Limitations: At baseline patient reports independence with ambulation with no assistive device. Equipment Owned/DME: None Subjective: Patient states that the paresthesias/numbness is virtually resolved. Not experiencing any in the left upper extremity. Feels motor strength is returned. Complains of floater in upper lateral quadrant left eye. No complaints of pain. Objective: General Observation: Telemetry, IV right arm. Upon entering the room patient observed walking independently. She is manipulating her IV pole as she walked throughout her room. Mental Status: Alert and oriented x3 Pain: 0/10 ROM: Right Upper Extremity: Glenohumeral joint, elbow and wrist active range of motion within normal limits Left Upper Extremity: Glenohumeral joint elbow and wrist active range of motion within normal limits Right Lower Extremity: Hip, knee and ankle active range of motion within normal limits Left Lower Extremity: Hip, knee and ankle active range of motion within normal limits Strength: Right Upper Extremity: 4/5 glenohumeral joint flexion, abduction, internal and external rotation. Biceps and triceps 5/5. Manager Of Customer Billing 5/5 Left Upper Extremity: 4/5 glenohumeral joint flexion, abduction, internal and external rotation. Biceps and triceps 5/5, silk spooler 5/5 Right Lower Extremity: 5/5 hip flexion, knee flexion, knee extension, ankle dorsiflexion and plantar flexion. Seated hip abduction 4/5, seated hip adduction 5/5 Left Lower Extremity: 5/5 hip flexion, knee flexion, knee extension, ankle dorsiflexion and plantar flexion. Seated hip abduction 4/5, seated hip adduction 5/5 Sensation: Patient reports sensation intact throughout bilateral upper extremities. Neuro: Left and right fingertip to nose and heel greenwood rub within normal limits. Alternating forearm supination pronation within normal limits. Bilateral upper extremity myotome within normal limits. DTRs not assessed Bed Mobility/Transfers: Sit to stand: Independent with no assistive device Stand to sit: Independent with no assistive device Bed mobility: Independent Bed to chair: Independent Gait: Patient ambulates 150 feet with standby assist and no assistive device. She is able to negotiate in rehab facility stairs with railing independently up and down 5 stairs x2. Balance: Static Sitting: Normal Dynamic Sitting: Normal Static Standing: Normal Dynamic Standing: Normal Negative Romberg Special Tests: Mobility Limitations Standardized Measure [facility] 6 clicks Basic Mobility Inpatient Short Form: Raw Score: 24 standardized Score: 61.14 [facility] Score: 0% Informed Consent/Education: Patient instructed in purpose of PT consult and plan of care. Assessment: Patient is a 61 year old [id number] female referred to physical therapy services with the diagnosis of TIA. Patient presents with clinical signs and symptoms consistent with above diagnosis. Symptoms have essentially resolved. Still having complaints of floaters in left visual eye field superior lateral aspect. Patient is independent in all functional mobility, gait and stair negotiation. She does not require assistive device. Patient does not necessitate any formal inpatient physical therapy at this time. -PAC score: 0% Patient is assessed as a X Low 26256 [] Moderate 30517 [] High 99983 complexity based on the following: History: See above Examination: See above Presentation: Stable Decision Makin% AM-PAC score Goals: Unestablished at this point as this patient is independent with all functional mobility. Will not be receiving any formal physical therapy. Plan of Care/Treatment Plan: Patient to be discharged home when medically cleared. She will not be receiving PT services. DISCHARGE RECOMMENDATIONS: X Home with no services [] Home with services [specify] [] Home with outpatient PT [] [] SNF for continued rehabilitation [] [] [facility] [] [] SNF versus LTC based on ability to participate and progress [] TREATMENT CODE/TIME: 03600 IE. 20 minutes 7:25-7:45 direct one-on-one care Thank you for this referral. Mack Bae PT, DPT Disclaimer: This note was created using [employer] voice recognition software. It was reviewed for major content. However, there may be multiple small discrepancies and errors due to the voice recognition aspects of the software.
[2021-09-03] MEDS: Multivitamin TAB 1 TAB PO (08:30)
[2021-09-03] MEDS: Aspirin E.C. 81 MG TABEC PO (08:30)
[2021-09-03] MEDS: Omeprazole 20 MG CAPCR PO (08:30)
[2021-09-03] MEDS: Ketorolac 60 MG/2 ML VIAL IM (12:29)
--- NOTE | 2021-09-03 13:11 | NUR.NOTE ---
Nursing Note: Ketorolac and phenergan given Deep IM on the right ventrogluteal for a migraine. Compatibility and administration verified through iv drug book
--- NOTE | 2021-09-03 13:15 | INITIAL_ITS ---
- If Service Date Differs Date of service: 09/03/21 Time of Service: 13:16 Care Management Initial Assess REASON FOR HOSPITALIZATION:: R/O CVA PAST MEDICAL HISTORY/PAST SURGICAL HISTORY:: Medical History . Colon polyps. DJD (degenerative joint disease). GERD (gastroesophageal reflux disease). Hypertension. no longer on medications-diet and weight controlled. Surgical History . Colonoscopy - IV Sedation. 2011 PREVIOUS FUNCTIONAL STATUS/SOCIAL/FAMILY SUPPORTS:: Resides in [place] with Atul. Independent at baseline in the community, employed at [employer]. CURRENT FUNCTIONAL STATUS:: Kathia is up independently. She was evaluated by PT who recommended no additional services upon discharge. ADVANCE DIRECTIVES:: None on file at [facility]. Has patient been provided with info about the portal/API?: Yes Did the patient sign up for the portal?: No INSURANCE COVERAGE / FINANCIAL ISSUES:: /[place] CURRENT HOME/COMMUNITY SERVICES/EQUIPMENT:: None, currently. PRIMARY CARE PHYSICIAN:: Constantine Acevedo POTENTIAL DISCHARGE NEEDS:: PT eval, work-up and imaging to R/O CVA, follow up appointment with PCP. PATIENT/FAMILY EDUCATION NEEDS:: Review discharge instructions, discuss Ask Me Three. ANTICIPATED BARRIERS TO DISCHARGE:: None identified. TRANSPORTATION:: Via private vehicle with [employer]. PLAN:: Anticipate Kathia will discharge home with no new services when ready per MD. She will have ECHO and US tomorrow-per provider. She will follow up with her PCP and transport via private vehicle with [facility] borja.
--- NOTE | 2021-09-03 15:00 | W.PM.PROGNOT ---
Date of Service Date of service: 09/03/21 Time of Service: 10:30 Assessment and Plan Assessment and plan (1) Headache: Start date: 09/03/21 Start time: 15:09 Status: Acute Assessment and plan: States black floater and swirls in eyes prior to left sided numbness. Sx resolved now having Left sided MARRUFO. Differential now considering atypical migraine vs cva vs TIA. Given firoicet. Tramadol and phenergan. A1C 5.9, she will need diet and exercise changes Lipid panel elevated continue atorvastatin and ASA MRI, Echo and Neuro consult for tomorrow Qualifiers: Headache type: other vascular headache Qualified Code(s): G44.1 - Vascular headache, not elsewhere classified (2) TIA (transient ischemic attack): Start date: 09/03/21 Start time: 15:13 Status: Suspected Assessment and plan: all sx resolved as above (3) GERD (gastroesophageal reflux disease): Start date: 09/03/21 Start time: 15:13 Status: Acute Assessment and plan: omeprazole Qualifiers: Esophagitis presence: esophagitis presence not specified Qualified Code(s): K21.9 - Gastro-esophageal reflux disease without esophagitis (4) Hypertension: Start date: 09/03/21 Start time: 15:13 Status: Acute Assessment and plan: Hold at this time for permissive discussed with Dr. Chaudhry Qualifiers: Hypertension type: unspecified Qualified Code(s): I10 - Essential (primary) hypertension Subjective Subjective Patient reports: other Interval history since last seen: Patient sitting up in bed states MARRUFO to left side of head. She endorses today that a couple of days ago she had floaters and swirlies in front of her eyes prior to her onset of sx. All symptoms have resolved now she has a marrufo. Differential for atypical migraine is high on the list for diagnosis given new information. Given a dose of fioricet this morning that didn't seem to help, then given toradol and phenergan IM to help with MARRUFO sx. otherwise no complaints Exam Const General: cooperative, comfortable and no acute distress Orientation: alert, awake and oriented x3 Eyes Eyelids: eyelids normal Pupils: PERRL EOM: EOM intact bilaterally Neck Neck: normal visual inspection and no JVD Lymphatic: no lymphadenopathy noted Resp Effort & Inspection: normal respiratory effort Auscultation: clear to auscultation bilaterally Cardio Jugular venous pressure: no JVD Rhythm: regular rhythm Heart Sounds: S1 normal GI Auscultation: normal bowel sounds General: No CVA tenderness and deferred Skin General skin exam: no rashes or lesions noted Neuro General: patient alert, patient awake, patient oriented x3 and no focal motor deficits Cranial Nerves: CN's II-XI intact bilaterally Cognition: normal cognition Speech: speech normal Gait: normal gait Motor: muscle tone normal throughout, strength 5/5 throughout, no pronator drift and no movement abnormalities noted Sensory Exam: no sensory deficits noted Coordination: [id number]-jl-[id number] test normal, [id number] test normal and Romberg test normal Extrem General: normal to inspection, full ROM and no clubbing, cyanosis or edema Objective Last Vital Signs Temp 36.8 C 09/03/21 12:05 Pulse 61 09/03/21 12:05 Resp 20 09/03/21 12:05 BP 158/92 H 09/03/21 12:05 Pulse Ox 96 09/03/21 12:05 Laboratory Results - last 24 hr 09/02/21 09/03/21 09/03/21 13:22 05:32 05:32 WBC RBC Hgb Hct MCV MCH MCHC RDW Plt Count MPV Immature Gran % Neutrophils % Lymphocytes % Monocytes % Eosinophils % Basophils % Nucleated RBC % Absolute Neutrophils Absolute Lymphocytes Absolute Monocytes Absolute Eosinophils Absolute Basophils Sodium 141 Potassium 4.1 D Chloride 105 Carbon Dioxide 30.4 Anion Gap 5.6 BUN 14 Creatinine 0.9 Estimated GFR/1.73 m2 >= 60.00 Glucose 95 Hemoglobin A1c 5.9 H Calcium 8.6 Magnesium 2.0 Triglycerides 90 Total Cholesterol 214 H LDL Cholesterol, Calc 114 H HDL Cholesterol 82 SARS-CoV-2 (PCR) Negative 09/03/21 05:32 WBC 7.56 RBC 4.25 Hgb 12.8 Hct 38.9 MCV 91.5 MCH 30.1 MCHC 32.9 RDW 13.5 Plt Count 253 MPV 9.1 Immature Gran % 0.1 Neutrophils % 60.7 Lymphocytes % 26.9 Monocytes % 9.0 Eosinophils % 2.9 Basophils % 0.4 Nucleated RBC % 0 Absolute Neutrophils 4.59 Absolute Lymphocytes 2.03 Absolute Monocytes 0.68 Absolute Eosinophils 0.22 Absolute Basophils 0.03 Sodium Potassium Chloride Carbon Dioxide Anion Gap BUN Creatinine Estimated GFR/1.73 m2 Glucose Hemoglobin A1c Calcium Magnesium Triglycerides Total Cholesterol LDL Cholesterol, Calc HDL Cholesterol SARS-CoV-2 (PCR)
[2021-09-03] MEDS: Enoxaparin 40 MG/0.4 ML SYR SC (17:38)
[2021-09-03] MEDS: Atorvastatin 40 MG TAB 80 MG PO (20:43)
--- NOTE | 2021-09-04 | DI.MRI_ITS ---
Exam(s) MR BRAIN WO EXAM: MR BRAIN WO CLINICAL HISTORY: TIA/ numbness tingling TECHNIQUE: Multiplanar multisequence MRI of the brain was performed. COMPARISON: CT CT HEAD - STROKE PROTOCOL from 09/02/2021 FINDINGS: CEREBRAL PARENCHYMA: There is no evidence of intracranial hemorrhage, mass effect, or shift of midline structures. There are no extra-axial fluid collections. Ventricles are not enlarged or shifted. There is no significant focal signal abnormality in the cerebellar hemispheres nor within the rick, m idbrain, and thalami. However, there are multiple small sub cm foci of signal abnormality in the peripheral subcortical whi te matter bilaterally, average size approximately 6 millimeters. No hemorrhage or surrounding edema related to these findings. Also no evidence of restricted motion on diffusion imaging. PITUITARY GLAND: No mass nor parasellar abnormality. No obvious abnormality in the cavernous sinuses. FLOW VOIDS: The expected flow void are noted. No evidence of obvious aneurysm nor obvious vascular ma lformation. PARANASAL SINUSES: The visualized paranasal sinuses appear unremarkable. No obvious finding ORBITS: No obvious findings. IMPRESSION: There are multiple bilateral small foci of white matter signal abnormality as described above, not as sociated with hemorrhage, surrounding edema nor abnormal signal on DWI imaging. Possibly related to chronic ischemic changes. These findings are nonspecific. Recommend follow-up MRI in 6 months, with earlier imaging if clinically indicated. DATA REPOSITORY:
--- NOTE | 2021-09-04 | DI.US_ITS ---
APPROVED REPORT EXAM: Comprehensive 2D, Doppler, and color-flow Echocardiogram Patient Location: In-Patient Room/Bed: 225 Information Systems Analyst: Carolann De Leon RDCS (AE) Indications: TIA, HTN Echo Enhancing Agent Indication: Rule out Shunt Agent(s) / Amount(s) Used: Agitated Saline 30.0 cc Comments: Contrast study was performed with 3 IV injections of 10ccs of agitated normal saline, at re st, with cough and post valsalva maneuver. Negative contrast study for shunt flow. Other Information Study Quality: Good Conclusion Left Ventricle : The left ventricle is normal size. The left ventricular systolic function is normal. The left ventricular ejection fraction is within the normal range. There is normal left ventricular wall thickness. There is normal LV segmental wall motion. The left ventricular diastolic function is normal. LVEF is 60%. Right Ventricle : The right ventricle is normal size. The right ventricular systolic function is norm al. The RVSP is 17.9 mmHg. Atria : The left atrium size is normal. The interatrial septum is intact with no evidence for an atri al septal defect. The right atrium size is normal. Mitral Valve : The mitral valve is normal in structure. Trace mitral regurgitation. No evidence of mi tral valve stenosis. Great Vessels : The aortic root is normal in size. The ascending aorta is normal in size. Aortic arch is normal in caliber. IVC is normal in size and collapses >50% with inspiration. Wall motion Left Ventricle The left ventricle is normal size. The left ventricular systolic function is normal. The left ventric ular ejection fraction is within the normal range. There is normal left ventricular wall thickness. T here is normal LV segmental wall motion. The left ventricular diastolic function is normal. There is no ventricular septal defect visualized. LVEF is 60%. Right Ventricle The right ventricle is normal size. The right ventricular systolic function is normal. The RVSP is 17 .9 mmHg. Atria The left atrium size is normal. The right atrium size is normal. The interatrial septum is intact wit h no evidence for an atrial septal defect. Aortic Valve The aortic valve is normal in structure. Aortic valve is trileaflet. There is no aortic valvular sten osis. No aortic regurgitation is present. Mitral Valve The mitral valve is normal in structure. No evidence of mitral valve stenosis. Trace mitral regurgita tion. Tricuspid Valve The tricuspid valve is normal in structure. There is no tricuspid valve stenosis. Trace tricuspid reg urgitation. Pulmonic Valve The pulmonary valve is normal in structure. There is no pulmonic valvular stenosis. Trace pulmonic re gurgitation. Great Vessels The aortic root is normal in size. The ascending aorta is normal in size. Aortic arch is normal in ca liber. IVC is normal in size and collapses >50% with inspiration. Pericardium There is no pericardial effusion. 2D Dimensions IVSD d PLAX 0.84 cm F: 0.6-1.0 LV Vol A2C d MOD 56.4 mL LVPW d PLAX 0.84 cm F: 0.6 - 1.0 LV Vol A4C d MOD 72.8 mL LVID d PLAX 4.25 cm F: 3.8 - 5.2 LA vol/ BSA A2C s A-L 19.4 mL/m2 LVDs 2.70 cm F: 2.2 - 3.5 LA vol/ BSA A4C s A-L 18.4 mL/m2 Ao Root d 2.92 cm F: 2.7 - 3.3 LA Vol/ BSA Biplane s A-L 19.7 mL/m2 RA Area A4C 10.69 cm2 LA Area A4C s MOD 12.06 cm2 RA Vol/ BSA A4C s A-L 15.8 mL/m2 LA Area A2C s MOD 12.88 cm2 Ao Asc Diam d 3.02 cm F: 2.3 - 3.1 LV EF A4C MOD 60.7 % LV EF Teichholz 65.7 % LV EF A2C MOD 61.5 % LVEF (Kan's) 61.20 % F: 54 - 74 LV EF Biplane MOD 61.2 % LV Volume 53.39 mL F: 46 - 106 SV 39.32 mL LV Volume Index 35.35 mL/m2 F: 29 - 61 SV Index 26.03 mL/m2 LV Vol Biplane MOD 64.2 mL FS 35.80 % M-Mode TAPSE 2.53 cm (M/F) >1.7 LV Diastology MV E' medial 0.099 (>0.07 m/s) E/A Ratio 1.1 LV E/e MED 9.15 (<14) MV E Vmax 0.91 (0.4-1.3 m/s) MV E' lateral 0.097 (>0.1 m/s) MV A Vmax 0.80 (0.4-1.3 m/s) LV E/e LAT 9.35 (<14) MV E/A Ratio 1.08 MV E/E' medial 9.15 MV E/E' lateral 9.39 Aortic Valve LVOT Area 3.15 cm2 AoV Area Vmax 2.63 cm2 LVOT Vmax 1.38 m/s AoV Area/ BSA (Vmax) 1.74 cm2/m2 LVOT Mean Leonard. 0.78 m/s ADONIS Mean Leonard. 2.17 cm2 LVOT Peak Grad 7.6 mmHg ADONIS Mean Leonard. Index 1.44 cm2/m2 LVOT Mean Grad 3.0 mmHg LVOT VTI 0.259 m LVOT Diam s 2.00 cm AoV Vmax 1.65 m/s Velocity Ratio 0.83 AoV Mean Leonard. 1.13 m/s AoV Peak Grad 10.9 mmHg LVOT SV 81.51 mL AoV Mean Grad 5.8 mmHg AoV VTI 0.316 m AoV Area VTI 2.58 cm2 AoV Area/ BSA (VTI) 1.71 cm/m2 Mitral Valve MV DT 166 (160-240 msec) MV PHT 48 msec MV Area PHT 4.58 cm2 MV VTI 0.424 m MV Area VTI 1.92 (4.0-6.0 cm2) Pulmonary Valve PV Vmax 0.95 (0.5-1.5 m/s) RVOT Peak Gr. 2.67 mmHg PV Peak Grad 3.6 mmHg RVOT Mean Gr. 1.25 mmHg PV Mean Grad 2.0 mmHg RVOT VTI 0.135 m PV VTI 0.195 m RVOT Vmax 0.82 m/s Tricuspid Valve TR Peak Grad 14.9 mmHg TR Vmax 1.93 m/s RA Pressure 3.00 mmHg RVSP (TR) 17.9 mmHg
[2021-09-04 01:55] VITALS: BP 138/76; PULSE 64; RESP 16; TEMP 36.9; O2SAT 96
[2021-09-04] MEDS: Butalbital/Acetaminophen/Caffeine 50/325/40 TAB PO (06:16)
[2021-09-04] MEDS: Normal Saline Flush 10 ML SYR IVP (06:17)
[2021-09-04 06:29] VITALS: BP 145/90; PULSE 64; RESP 16; TEMP 36.4; O2SAT 96
[2021-09-04 06:59] VITALS: PULSE 64
[2021-09-04] MEDS: Multivitamin TAB 1 TAB PO (07:37)
[2021-09-04] MEDS: Omeprazole 20 MG CAPCR PO (07:37)
[2021-09-04] MEDS: Aspirin E.C. 81 MG TABEC PO (07:37)
[2021-09-04 10:56] VITALS: BP 156/79; PULSE 63; RESP 16; TEMP 36.5; O2SAT 96
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
[2021-09-04 14:38] VITALS: PULSE 68
--- NOTE | 2021-09-04 16:10 | NUR.NOTE ---
Spoke with Anai at Dr. [facility] office in [facility]- information faxed and they will call patient directly to schedule appt. Nursing Note:
--- NOTE | 2021-09-04 19:24 | PDOC.CMDIS ---
- If Service Date Differs Date of service: 09/04/21 Time of Service: 19:24 LACE Index Scoring Tool - Questions: Length of Stay (in days): 2 Acuity (Admit via E.D.?): Yes E.D. Visits: 1 - Answers: Total Score: 6 Risk of Readmission: Low Risk Care Management Discharge Reason for Hospitalization: R/O CVA Discharge Plan: Kathia will return home today with no new services. Her will drive her home via private vehicle. She will follow up with her PCP and discharge plan of care. She is happy to be going home. Patient/Family Education Needs: Review discharge instructions regarding activity levels and medications, discussion of self care needs including ask me three.
== END 2021-09-04 15:44 | disposition home or self-care (01) ==
LOC: ER 13:17 → MS 14:10
PROVIDERS: Nurse Practitioner Family; Admitting Provider Family Medicine; Emergency Provider Emergency Medicine; PCP Physician Assistant; Visit Provider Family Medicine
DX: G44.1 Vascular headache, not elsewhere classified (principal); K21.9 Gastro-esophageal reflux disease without esophagitis; I10 Essential (primary) hypertension; Z20.822 Contact with and (suspected) exposure to COVID-19; Z87.891 Personal history of nicotine dependence
CPT/HCPCS: 36415; 80048; 80053; 80061; 87635; 93005; J1650; 70450; 70551; 71045; 83036; 83735; 84484; 85025; 93010; 93306; 99217; 99220; 99225; G0378; J1885

== ENCOUNTER 2022-06-11 16:45 | Outpatient (REF) | payer BC, SELFPAY ==
[2022-06-11 20:25] LABS: Anion Gap 9.4 mmol/L (3-11); BUN 17 mg/dL (7-18); CO2 29.6 mmol/L (21.0-32.0); CREATININE 0.8 mg/dL (0.55-1.02); Calcium 9.2 mg/dL (8.5-10.1); Chloride 99 mmol/L (98-107); Estimated GFR 83.26 (mL/min/1.73m2); Glucose 81 mg/dL (74-106); Potassium 3.9 mmol/L (3.5-5.1); Sodium 138 mmol/L (136-145)
== END 2022-06-11 16:46 | disposition home or self-care (01) ==
LOC: NCHCN 16:45
PROVIDERS: PCP Physician Assistant; Visit Provider Physician Assistant
DX: I10 Essential (primary) hypertension (principal)
CPT/HCPCS: 80048; 83036

== ENCOUNTER → 2022-09-04 01:12 | Outpatient (CLI) | payer BC, SELFPAY ==
--- NOTE | 2022-09-04 15:15 | DI.MAMMO_ITS ---
Exam(s) MAMMO SCREENING EXAM: MAMMO SCREENING CLINICAL HISTORY: SCREENING, Z12.39 TECHNIQUE: Bilateral full field digital CC and MLO mammographic images were obtained with 3D tomosyn thesis and utilizing computer aided detection (CAD). COMPARISON: Available for comparison. FINDINGS: Masses/Architectural Distortion: None seen. Microcalcifications: No suspicious pleomorphic-type are seen. Skin Thickening/Nipple Retraction: None. IMPRESSION: 1. No significant interval change with no specific features of malignancy noted. 2. Unless there is more urgent need, screening mammography is recommended, as per [employer] guidelines. BI-RADS Category 1 - Negative Breast Density - Category C - Heterogeneously dense Breast density category C or D implies that the patient has dense breast tissue. Dense breast tissue is very common and is not abnormal but dense breast tissue can make it harder to find cancer on a ma mmogram. Also, dense breast tissue may increase their breast cancer risk. This information about the result of the mammogram report was provided to the patient to raise their awareness. Use this report when you speak with the patient about their risks for breast cancer, which includes their family hist ory. At that time, you may recommend for more screening tests (Ultrasound or MRI) as they might be us eful based on their risk. A negative radiographic report should not delay biopsy if a dominant or clinically suspicious mass is present. Up to ten percent of cancers are not identified on mammography. A negative report may reinforce clinical impression. Adenosis and dense breasts may obscure an underlying neoplasm. False positive reports average 6 to 10%. Patient will receive a letter notifying them of these results.
== END ==
PROVIDERS: PCP Physician Assistant; Visit Provider Physician Assistant
DX: Z12.31 Encounter for screening mammogram for malignant neoplasm of breast (principal); R92.8 Other abnormal and inconclusive findings on diagnostic imaging of breast
CPT/HCPCS: 77063; 77067

== ENCOUNTER 2023-05-28 19:57 | Outpatient (REF) | payer BC, SELFPAY ==
[2023-05-28 19:53] LABS: ALT 28 U/L (14-59); AST 19 U/L (15-37); Albumin 3.8 g/dL (3.4-5.0); Alkaline Phosphatase 50 U/L (46-116); Anion Gap 9.6 mmol/L (3-11); BUN 15 mg/dL (7-18); Bilirubin, Total 0.7 mg/dL (0.2-1.0); CO2 26.4 mmol/L (21.0-32.0); CREATININE 0.7 mg/dL (0.55-1.02); Chloride 100 mmol/L (98-107); Cholesterol 219 mg/dL (<200); Estimated GFR 97.12 (mL/min/1.73m2); Glucose 76 mg/dL (74-106); HDL Cholesterol 98 mg/dL (40-60); Sodium 136 mmol/L (136-145); Total Protein 6.6 g/dL (6.4-8.2)
[2023-05-28 19:58] LABS: Triglyceride <25 mg/dL (<150)
[2023-05-28 20:08] LABS: LDL CHOLESTEROL 104 mg/dL (<100)
== END 2023-05-28 19:58 | disposition home or self-care (01) ==
LOC: NCHCN 19:57
PROVIDERS: PCP Physician Assistant; Visit Provider Physician Assistant
DX: I10 Essential (primary) hypertension (principal); R73.03 Prediabetes
CPT/HCPCS: 80053; 80061; 83721; 83036

== ENCOUNTER → 2023-08-01 00:34 | Outpatient (CLI) | payer BC, SELFPAY ==
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
== END ==
PROVIDERS: PCP Physician Assistant; Visit Provider Physician Assistant
DX: Z13.820 Encounter for screening for osteoporosis (principal); Z78.0 Asymptomatic menopausal state
CPT/HCPCS: 77080

== ENCOUNTER 2023-08-07 16:07 | Outpatient (REF) | payer BC, SELFPAY ==
--- NOTE | 2023-08-07 13:50 | PAPFT_PTH ---
PATIENT: Kathia Ortiz LOC: [facility] U#:[id number] AGE/SX: 63/F ROOM: RE08/07/[address]: Jenae Pulido MD : [id number] BED: DIS: 08/07/2023 SPEC #: [id number] RECD: 08/07/23 17:46 STATUS: LAURA REQ #: [id number] GLENDY: 08/07/23 13:[address]: Jenae Pulido DEPT: [facility] Cytology RECD BY: Drea Doyle ENTERED: 08/07/23 17:47 SP TYPE: PAPFT OTHR DR: Constantine Acevedo Tissues: 1 - CX/ENDOCX FOR PAP SMEARS Procedures: PAP THIN PREP/UVM Screening HPV DNA PROBE Comments: [id number]
== END 2023-08-07 16:08 | disposition home or self-care (01) ==
LOC: LBN 16:07
PROVIDERS: PCP Physician Assistant; Visit Provider Obstetrics & Gynecology
DX: Z01.419 Encounter for gynecological examination (general) (routine) without abnormal findings (principal)
CPT/HCPCS: 88142; 87624

== ENCOUNTER 2024-07-13 16:10 | Outpatient (REF) | payer BC, SELFPAY ==
[2024-07-13 16:56] LABS: Hemoglobin A1C 5.8 % (<5.7)
[2024-07-13 17:37] LABS: ALT 40 U/L (14-59); AST 19 U/L (15-37); Alkaline Phosphatase 56 U/L (46-116); Anion Gap 11.5 mmol/L (3-11); BUN 25 mg/dL (7-18); Bilirubin, Total 0.66 mg/dL (0.2-1.0); CO2 28.5 mmol/L (21.0-32.0); CREATININE 0.9 mg/dL (0.55-1.02); Calcium 9.2 mg/dL (8.5-10.1); Calculated LDL 123 mg/dL (<100); Chloride 102 mmol/L (98-107); Cholesterol 229 mg/dL (<200); Estimated GFR 71.39 (mL/min/1.73m2); Glucose 83 mg/dL (74-106); HDL Cholesterol 100 mg/dL (40-60); Sodium 142 mmol/L (136-145); Total Protein 6.9 g/dL (6.4-8.2); Triglyceride 32 mg/dL (<150)
== END 2024-07-13 16:11 | disposition home or self-care (01) ==
LOC: NCHCN 16:10
PROVIDERS: PCP Physician Assistant; Visit Provider Physician Assistant
DX: R73.03 Prediabetes (principal); I10 Essential (primary) hypertension; Z13.220 Encounter for screening for lipoid disorders
CPT/HCPCS: 80053; 80061; 83036

== ENCOUNTER 2024-07-28 01:03 | Outpatient (CLI) | payer BC, SELFPAY ==
--- NOTE | 2024-07-28 15:12 | DI.MAMMO_ITS ---
Exam(s) MAMMO SCREENING EXAM: MAMMO SCREENING CLINICAL HISTORY: Screening, Z12.31 TECHNIQUE: Bilateral full field digital CC and MLO mammographic images were obtained with 3D tomosyn thesis and utilizing computer aided detection (CAD). COMPARISON: Available for comparison. FINDINGS: Masses/Architectural Distortion: The ovoid opacity in the outer right breast on the craniocaudad view appears stable. No new nodules are seen. No areas of architectural distortion are present. Microcalcifications: No suspicious pleomorphic-type are seen. Skin Thickening/Nipple Retraction: None. IMPRESSION: 1. No significant interval change with no specific features of malignancy noted. 2. Unless there is more urgent need, screening mammography is recommended, as per [employer] guidelines. BI-RADS Category 2 - Benign Findings Breast Density - Category C - Heterogeneously dense Breast density category C or D implies that the patient has dense breast tissue. Dense breast tissue is very common and is not abnormal but dense breast tissue can make it harder to find cancer on a ma mmogram. Also, dense breast tissue may increase their breast cancer risk. This information about the result of the mammogram report was provided to the patient to raise their awareness. Use this report when you speak with the patient about their risks for breast cancer, which includes their family hist ory. At that time, you may recommend for more screening tests (Ultrasound or MRI) as they might be us eful based on their risk. A negative radiographic report should not delay biopsy if a dominant or clinically suspicious mass is present. Up to ten percent of cancers are not identified on mammography. A negative report may reinforce clinical impression. Adenosis and dense breasts may obscure an underlying neoplasm. False positive reports average 6 to 10%. Patient will receive a letter notifying them of these results.
== END 2024-07-28 01:23 ==
LOC: DI 01:03
PROVIDERS: PCP Physician Assistant; Visit Provider Physician Assistant
DX: Z12.31 Encounter for screening mammogram for malignant neoplasm of breast (principal); R92.333 Mammographic heterogeneous density, bilateral breasts; D24.9 Benign neoplasm of unspecified breast
CPT/HCPCS: 77063; 77067

== ENCOUNTER 2024-08-24 01:46 | Outpatient (CLI) | payer BC, SELFPAY ==
--- NOTE | 2024-08-24 | DI.RAD_ITS ---
Exam(s) XR KNEE LT 3V AP,LAT,OSEI EXAM: XR KNEE LT 3V AP,LAT,OSEI CLINICAL HISTORY: PAIN LT KNEE, M25.562,CHRONIC,? OA. TECHNIQUE: 2D digital imaging was performed. Three views. COMPARISON: CR XR knee LT 4V AP,lat,osei,pat from 05/17/2019 FINDINGS: BONES: No acute fracture is present. No bony destructive lesion is seen. JOINTS: The knee is normally aligned. No joint effusion is seen. No significant degenerative change s. SOFT TISSUE: Normal. IMPRESSION: Normal radiographs of the left knee. DATA REPOSITORY: RADIATION DOSE DELIVERED:
== END 2024-08-24 02:06 ==
LOC: DI 01:51
PROVIDERS: PCP Physician Assistant; Visit Provider Physician Assistant
DX: M25.562 Pain in left knee (principal)
CPT/HCPCS: 73562

== ENCOUNTER 2025-06-22 16:20 | Outpatient (REF) | payer BC, SELFPAY | END 2025-06-22 16:21 | disposition home or self-care (01) | LOC: NCHCN 16:20 | PROVIDERS: PCP Physician Assistant; Visit Provider Physician Assistant | DX: L02.91 Cutaneous abscess, unspecified (principal) | CPT/HCPCS: 87070; 87205 ==

== ENCOUNTER → 2025-07-30 03:18 | Outpatient (CLI) | payer OTHER, SELFPAY ==
--- NOTE | 2025-07-30 | DI.MAMMO_ITS ---
Exam(s) MAMMO SCREENING EXAM: MAMMO SCREENING CLINICAL HISTORY: Z12.31 Screening TECHNIQUE: Bilateral full field digital CC and MLO mammographic images were obtained with 3D tomosynthesis and utilizing computer aided detection (CAD). COMPARISON: Comparison is made with prior examinations. FINDINGS: Masses/Architectural Distortion: No suspicious masses or areas of architectural distortion are present. There is a stable ovoid nodule in the outer right breast. Microcalcifications: No suspicious pleomorphic-type are seen. Skin Thickening/Nipple Retraction: None. IMPRESSION: 1. No significant interval change with no specific features of malignancy noted. 2. Unless there is more urgent need, screening mammography is recommended, as per [employer] guidelines. BI-RADS Category 2 - Benign Findings Breast Density - Category C - The breast are heterogeneously dense, which may obscure small masses. Breast density Category C or D implies that the patient has dense breast tissue. Dense breast tissue can make it harder to find cancer on a mammogram. Dense breast tissue is also associated with an increased risk of breast cancer. This information about the result of the mammogram report was provided to the patient to raise their awareness. Use this report when you speak with the patient about their risks for breast cancer, which includes their family history. At that time, you may recommend additional screening tests (Ultrasound or MRI) as these tests may add significant information. A negative radiographic report should not delay biopsy if a dominant or clinically suspicious mass is present. Up to ten percent of cancers are not identified on mammography. A negative report may reinforce clinical impression. Adenosis and dense breasts may obscure an underlying neoplasm. False positive reports average 6 to 10%. Patient will receive a letter notifying them of these results.
== END ==
PROVIDERS: PCP Physician Assistant; Visit Provider Physician Assistant
DX: Z12.31 Encounter for screening mammogram for malignant neoplasm of breast (principal)
CPT/HCPCS: 77063; 77067